=== PATIENT | female | born 1980 | race Caucasian/White ===

== ENCOUNTER 2018-04-24 11:42 | Emergency (ER) | payer SELFPAY ==
[2018-04-24] MEDS ORDERED: diphenhydrAMINE 50 MG/ML VIAL ONE (13:10)
[2018-04-24] MEDS ORDERED: Metoclopramide HCl 10 MG/2 ML VIAL ONE (13:10)
[2018-04-24] MEDS ORDERED: Ketorolac Tromethamine 30 MG/ML VIAL ONE (13:52)
--- NOTE | 2018-04-24 14:43 | CT ---
CT BRAIN WITHOUT CONTRAST: Date: 04/24/18 HISTORY: Headache. FINDINGS: No evidence of infarct, hemorrhage, midline shift, or abnormal extra-axial fluid collections are seen . The ventricular size is normal and the basilar cisterns are patent. The bony calvarium is intact. T he visualized paranasal sinuses and mastoid air cells are well aerated. IMPRESSION: No CT evidence of acute intracranial process. POS: OFF
== END 2018-04-24 14:21 | disposition home or self-care (01) ==
LOC: ERS 11:42
DX: R51 Headache (principal); I10 Essential (primary) hypertension; Z79.82 Long term (current) use of aspirin
CPT/HCPCS: 70450; 96365; 96375; J1200; J1885; J2765